=== PATIENT | male | born 1995 | race Caucasian/White ===

== ENCOUNTER 2017-07-07 22:27 | Emergency (ER) | payer OTHER ==
[~2017-07-07] VITALS: Ht 167.6 cm; Wt 83.9 kg
[~2017-07-07 22:27] MED LIST: ADDERALL; AUGMENTIN PO; FOCALIN10 MG; IBUPROFEN800 MG PO; LORTAB 5/500 TA1 TA1 PO; PENICILLIN V P500 MG PO; PHENERGAN DM1 ML PO; SEPTRA DS PO; ZOVIRAX800 MG PO; [UNRECOGNIZED DRUG - REMARK]
[2017-07-07] MEDS ORDERED: NO MEDICATIONS (22:38)
== END 2017-07-07 23:00 | disposition left against medical advice (07) ==
LOC: SED 22:27
DX: Z53.21 Procedure and treatment not carried out due to patient leaving prior to being seen by health care provider (principal)

== ENCOUNTER 2017-07-08 16:53 | Emergency (ER) | payer OTHER ==
[~2017-07-08 16:53] MED LIST changes: +NO MEDICATIONS
== END 2017-07-08 18:48 | disposition home or self-care (01) ==
LOC: SED 16:53
DX: M79.641 Pain in right hand (principal); F17.200 Nicotine dependence, unspecified, uncomplicated
CPT/HCPCS: 99283